=== PATIENT | male | born 1955 | race Asian ===

== ENCOUNTER 2017-02-05 07:25 | Day surgery (SDC) | payer OTHER ==
[2017-01-31 10:13] VITALS: BMI 21.9
[2017-02-05] MEDS ORDERED: PROPOFOL 20 ML ONE ×2 (07:28)
[2017-02-05 09:13] VITALS: TEMP 97.5
[2017-02-05 09:48] VITALS: BP 142/71; PULSE 52
--- NOTE | 2017-02-11 12:59 | PATH ---
Surgical Pathology Report Patient Name: HON Sharita TAN [facility]. Rec. #: [id number] /Age/Gender: 1955 (Age: 61) / M Account: [id number] Location: [facility]-ENDOSCOPY Taken: 02/05/2017 Received: 02/05/2017 Reported: 02/11/2017 Physicians: Eduardo Pyle M.D. Specimen(s) Received A: BX DUODENUM B: BX ANTRUM Clinical History Peptic ulcer disease, rule out colon cancer Gastritis, rule out celiac disease Final Diagnosis A. DUODENUM, BIOPSY: DUODENAL MUCOSA WITH NO PATHOLOGIC FINDINGS. Note: Features suggestive of celiac disease are not identified in this biopsy. B. ANTRUM, BIOPSY: MODERATE CHRONIC GASTRITIS. IMMUNOSTAIN IS NEGATIVE FOR H. PYLORI ORGANISMS. Electronically Signed Rosanna Hollis M.D. Gross Description A. Received in formalin, labeled "duodenum" are 2 nunez, irregular portions of soft tissue averaging 0.4 cm. in greatest dimension. The specimens are submitted in toto in one cassette. B. Received in formalin, labeled "antrum" are 2 nunez, irregular portions of soft tissue averaging 0.3 cm. in greatest dimension. The specimens are submitted in toto in one cassette. 02/06/201702/06/2017
== END 2017-02-05 09:50 | disposition home or self-care (01) ==
LOC: FASU-ENDO 07:25
PROVIDERS: ATTEND Internal Medicine Gastroenterology
PROC: 0DJD8ZZ Inspection of Lower Intestinal Tract, Via Natural or Artificial Opening Endoscopic (ICD-10-PCS; principal; 2017-02-05 08:32)
DX: Z12.11 Encounter for screening for malignant neoplasm of colon (principal)
CPT/HCPCS: 88305-TC; 88342-TC